=== PATIENT | male | born 1990 ===

== ENCOUNTER 2021-03-12 21:18 | Emergency (ER) | payer SELFPAY ==
[~2021-03-12] VITALS: Ht 182.9 cm; Wt 75.0 kg
[2021-03-12 21:26] VITALS: BP 133/102
== END 2021-03-12 23:23 | disposition left against medical advice (07) ==
LOC: ER 21:18
DX: E46 Unspecified protein-calorie malnutrition (principal); Z53.21 Procedure and treatment not carried out due to patient leaving prior to being seen by health care provider